=== PATIENT | male | born 1955 | race American Indian/Alaskan Native ===

== ENCOUNTER 2021-04-26 04:55 | Day surgery (SDC) | payer OTHER ==
[2021-04-23 13:05] VITALS: BMI 29.0
[2021-04-26 11:48] VITALS: BP 187/110; PULSE 86; TEMP 98.1
== END 2021-04-26 12:10 | disposition home or self-care (01) ==
LOC: JASU-ENDO 04:55
PROVIDERS: ATTEND Internal Medicine Cardiovascular Disease
DX: Z53.8 Procedure and treatment not carried out for other reasons (principal)
CPT/HCPCS: 93005; 93010